=== PATIENT | female | born 1975 | race Caucasian/White ===

== ENCOUNTER 2020-02-26 19:54 | Emergency (ER) | payer OTHER ==
[~2020-02-26] VITALS: Ht 167.6 cm; Wt 108.9 kg
[2020-02-26 23:50] LABS: Source, Urine Clean Catch
[2020-02-26 23:57] LABS: Bilirubin, Urine Neg (Neg); Blood, Urine 5+ (Neg); Glucose Qualitative, Urine Neg (Neg); Ketones, Urine 3+ (Neg); Leukocyte Esterase, Urine 3+ (Neg); Nitrite, Urine Pos (Neg); Protein, Urine 2+ (Neg); Specific Gravity, Urine 1.025 (1.003-1.022); Urobilinogen, Urine 1+ (Normal)
[2020-02-27 00:05] LABS: Appearance, Urine Cloudy (Clear); Color, Urine Yellow (P-Yellow)
[2020-02-27 00:06] LABS: Bacteria Many /hpf; Red Blood Cells, Urine 0-2 /hpf (0-2); Squamous Epithelial Cells Many /hpf (Few); White Blood Cells, Urine TNTC /hpf (0-5)
[2020-03-01] MEDS ORDERED: CEPH500 PO (09:34)
== END 2020-02-27 00:38 | disposition home or self-care (01) ==
LOC: ER 19:54
PROVIDERS: Physician Assistant
DX: N93.9 Abnormal uterine and vaginal bleeding, unspecified (principal); R82.71 Bacteriuria; Z88.5 Allergy status to narcotic agent
CPT/HCPCS: 81001; 81025; 87077; 87086; 87186; 99284

== ENCOUNTER 2020-04-21 19:50 | Emergency (ER) | payer OTHER ==
[~2020-04-21] VITALS: Ht 167.6 cm; Wt 108.9 kg
[~2020-04-21 19:50] MED LIST: CEPH500 PO
[2020-04-21] MEDS ORDERED: CYCL10 PO (22:31)
[2020-04-21] MEDS ORDERED: IBUP800 PO (22:31)
== END 2020-04-21 22:34 | disposition home or self-care (01) ==
LOC: ER 19:50
DX: M54.41 Lumbago with sciatica, right side (principal); F17.210 Nicotine dependence, cigarettes, uncomplicated; Z88.5 Allergy status to narcotic agent
CPT/HCPCS: 72100; 72170; J1885

== ENCOUNTER 2021-07-07 14:07 | Emergency (ER) | payer OTHER ==
[~2021-07-07] VITALS: Ht 167.6 cm; Wt 102.1 kg
[~2021-07-07 14:07] MED LIST changes: +CYCL10 PO; +IBUP800 PO
[2021-07-07 14:55] LABS: BASOPHILS ABSOLUTE AUTO 0.02 K/mm3 (0.00-0.23); BASOPHILS PERCENT AUTO 0 % (0-2); EOSINOPHILS ABSOLUTE AUTO 0.11 K/mm3 (0.00-0.68); EOSINOPHILS PERCENT AUTO 1 % (0-6); Hematocrit 47.7 % (33.0-51.0); Hemoglobin 15.7 g/dL (11.5-16.0); IMMATURE GRAN ABSOLUTE AUTO 0.03 K/mm3 (0.00-0.10); IMMATURE GRAN PERCENT AUTO 0 % (0-1); LYMPHOCYTES ABSOLUTE AUTO 1.58 K/mm3 (0.84-5.20); LYMPHOCYTES PERCENT AUTO 14 % (21-46); MONOCYTES ABSOLUTE AUTO 0.43 K/mm3 (0.16-1.47); MONOCYTES PERCENT AUTO 4 % (4-13); Mean Corpuscular HGB 30.7 pg (26.0-34.0); Mean Corpuscular HGB Conc 32.9 g/dL (31.5-36.5); Mean Corpuscular Volume 93 fL (80-100); Mean Platelet Volume 10.6 fL (9.1-12.4); NEUTROPHILS ABSOLUTE AUTO 9.16 K/mm3 (1.96-9.15); NEUTROPHILS PERCENT AUTO 81 % (41-73); Platelet Count 252 K/mm3 (150-400); RDW Coefficient Variation 12.2 % (11.7-14.2); RDW Standard Deviation 42.5 fL (35.1-46.3); Red Blood Cell Count 5.12 M/mm3 (3.80-5.20); White Blood Cell Count 11.33 K/mm3 (4.00-11.30)
[2021-07-07 15:11] LABS: Alanine Aminotransfer (ALT/SGP 19 U/L (12-78); Albumin, Blood 3.8 g/dL (3.4-5.0); Alk Phos 71 U/L (50-136); Anion Gap 3 mmol/L (6-16); Aspartate Aminotrans (AST/SGOT 12 U/L (12-37); Bilirubin, Total 0.4 mg/dL (0.1-1.0); Blood Urea Nitrogen 15 mg/dL (8-24); Bun/Creatinine Ratio 17.7 (12.0-20.0); CO2, Blood 27 mmol/L (21-32); Chloride, Blood 111 mmol/L (98-108); Creatinine, Blood 0.85 mg/dL (0.40-1.00); Globulin, Blood 3.7 g/dL (2.2-4.0); Glomerular Filtration Rate >60 (60-); Glucose, Blood 106 mg/dL (70-99); Potassium, Blood 4.1 mmol/L (3.5-5.5); Sodium, Blood 141 mmol/L (136-145); Total Protein, Blood 7.5 g/dL (6.4-8.2)
[2021-07-07] MEDS ORDERED: SULTRIDS PO (17:33)
[2021-07-07] MEDS ORDERED: CEPH500 PO (17:33)
[2021-07-07] MEDS ORDERED: BANOPHEN25 MG PO (17:33)
[2021-07-07] MEDS ORDERED: Norco 5-325 Ta1 EACH PO (17:33)
== END 2021-07-07 17:43 | disposition home or self-care (01) ==
LOC: ER 14:07
PROVIDERS: Physician Assistant
DX: L03.116 Cellulitis of left lower limb (principal)
CPT/HCPCS: 36415; 73630; 80053; 83605; 85025; 86141; 93005; 93010; 96374; 96375; 99284-25; A9270; J0690; J1885; J2060; J2405; J3010; J7030

== ENCOUNTER 2022-07-26 12:58 | Emergency (ER) | payer OTHER ==
[~2022-07-26] VITALS: Ht 167.6 cm; Wt 104.3 kg
[~2022-07-26 12:58] MED LIST changes: +BANOPHEN25 MG PO; +CALAMINE LOTIO177 ML TOP; +HYDR1TAB94 PO; +Norco 5-325 Ta1 EACH PO; +SULTRIDS PO
== END 2022-07-26 15:42 | disposition home or self-care (01) ==
LOC: ER 12:58
DX: S50.11XA Contusion of right forearm, initial encounter (principal); S60.021A Contusion of right index finger without damage to nail, initial encounter; M79.7 Fibromyalgia; F17.210 Nicotine dependence, cigarettes, uncomplicated; Z88.5 Allergy status to narcotic agent; Z79.899 Other long term (current) drug therapy; W55.12XA Struck by horse, initial encounter
CPT/HCPCS: 73090; 73130; 96372; 99283-25; A9270; J1885

== ENCOUNTER 2023-03-22 12:35 | Emergency (ER) | payer OTHER ==
[~2023-03-22] VITALS: Ht 167.6 cm; Wt 102.1 kg
[~2023-03-22 12:35] MED LIST changes: +GABA300 PO; +LITH300C PO; +TRAZ50
[2023-03-22 15:44] LABS: BASOPHILS ABSOLUTE AUTO 0.03 K/mm3 (0.00-0.23); BASOPHILS PERCENT AUTO 0 % (0-2); EOSINOPHILS PERCENT AUTO 0 % (0-6); Hematocrit 42.9 % (33.0-51.0); Hemoglobin 14.4 g/dL (11.5-16.0); IMMATURE GRAN ABSOLUTE AUTO 0.02 K/mm3 (0.00-0.10); IMMATURE GRAN PERCENT AUTO 0 % (0-1); LYMPHOCYTES ABSOLUTE AUTO 2.07 K/mm3 (0.84-5.20); LYMPHOCYTES PERCENT AUTO 21 % (21-46); MONOCYTES ABSOLUTE AUTO 0.35 K/mm3 (0.16-1.47); MONOCYTES PERCENT AUTO 4 % (4-13); Mean Corpuscular HGB 30.6 pg (26.0-34.0); Mean Corpuscular HGB Conc 33.6 g/dL (31.5-36.5); Mean Corpuscular Volume 91 fL (80-100); Mean Platelet Volume 10.5 fL (9.1-12.4); NEUTROPHILS ABSOLUTE AUTO 7.35 K/mm3 (1.96-9.15); NEUTROPHILS PERCENT AUTO 75 % (41-73); Platelet Count 237 K/mm3 (150-400); RDW Coefficient Variation 11.9 % (11.7-14.2); RDW Standard Deviation 40.4 fL (35.1-46.3); White Blood Cell Count 9.82 K/mm3 (4.00-11.30)
[2023-03-22 16:12] LABS: Ethanol (Alcohol), Blood, Med <3 mg/dL
[2023-03-22 16:13] LABS: Alanine Aminotransfer (ALT/SGP 23 U/L (12-78); Albumin, Blood 3.3 g/dL (3.4-5.0); Alk Phos 58 U/L (50-136); Anion Gap 4 mmol/L (6-16); Aspartate Aminotrans (AST/SGOT 16 U/L (12-37); Bilirubin, Total 0.4 mg/dL (0.1-1.0); Blood Urea Nitrogen 7 mg/dL (8-24); Bun/Creatinine Ratio 9.1 (12.0-20.0); CO2, Blood 24 mmol/L (21-32); Chloride, Blood 115 mmol/L (98-108); Creatinine, Blood 0.77 mg/dL (0.40-1.00); Globulin, Blood 3.3 g/dL (2.2-4.0); Glomerular Filtration Rate 96 (60-); Glucose, Blood 80 mg/dL (70-99); Potassium, Blood 3.4 mmol/L (3.5-5.5); Sodium, Blood 143 mmol/L (136-145); Total Protein, Blood 6.6 g/dL (6.4-8.2)
[2023-03-22 16:41] LABS: Lithium <0.20 mmol/L (0.60-1.20)
[2023-03-22 16:42] VITALS: BP 133/84
[2023-03-22] MEDS ORDERED: LITH300C PO (17:08)
[2023-03-23] MEDS ORDERED: MELATONIN5 M1 PO (18:42)
[2023-03-23] MEDS ORDERED: LITH300C PO (18:42)
[2023-03-23] MEDS ORDERED: TRAZ100 PO (18:43)
== END 2023-03-22 17:17 | disposition home or self-care (01) ==
LOC: ER 12:35
PROVIDERS: Emergency Medicine
DX: F31.9 Bipolar disorder, unspecified (principal); Z91.148 Patient's other noncompliance with medication regimen for other reason; F41.9 Anxiety disorder, unspecified; M79.7 Fibromyalgia; F17.210 Nicotine dependence, cigarettes, uncomplicated; Z79.899 Other long term (current) drug therapy; Z88.5 Allergy status to narcotic agent
CPT/HCPCS: 80053; 80178; 85025; 99283; A9270

== ENCOUNTER 2023-03-23 18:09 | Observation (INO) | payer OTHER ==
[~2023-03-23] VITALS: Ht 167.6 cm; Wt 102.1 kg
[2023-03-23] MEDS ORDERED: MELATONIN5 M1 PO (18:42)
[2023-03-23] MEDS ORDERED: LITH300C PO (18:42)
[2023-03-23] MEDS ORDERED: TRAZ100 PO (18:43)
[2023-03-25 08:35] VITALS: BP 106/76
[2023-03-25 10:29] LABS: Lithium 0.79 mmol/L (0.60-1.20)
== END 2023-03-25 14:32 ==
LOC: ER 18:09 → EOR 18:10
PROVIDERS: Psychiatry & Neurology Psychiatry; ADMIT Emergency Medicine
DX: F31.81 Bipolar II disorder (principal); F17.210 Nicotine dependence, cigarettes, uncomplicated; F43.12 Post-traumatic stress disorder, chronic; F12.129 Cannabis abuse with intoxication, unspecified; R45.851 Suicidal ideations; G89.29 Other chronic pain; M54.9 Dorsalgia, unspecified; Z88.8 Allergy status to other drugs, medicaments and biological substances; Z88.5 Allergy status to narcotic agent
CPT/HCPCS: 80178; 99285; A9270; G0378

== ENCOUNTER 2023-08-30 12:12 | Emergency (ER) | payer OTHER ==
[~2023-08-30] VITALS: Ht 167.6 cm; Wt 104.3 kg
[~2023-08-30 12:12] MED LIST changes: +MELATONIN5 M1 PO; +TRAZ100 PO
[2023-08-30 12:33] VITALS: BP 162/94
[2023-08-30] MEDS ORDERED: Ketorolac Tromethamine 30mg Vial IM ONE (14:25)
[2023-08-30] MEDS ORDERED: Acetaminophen 500 MG Tab PO ONE (14:25)
[2023-08-30] MEDS ORDERED: CRUTCH2 XX (15:54)
== END 2023-08-30 16:22 | disposition home or self-care (01) ==
LOC: ER 12:12
DX: S82.64XA Nondisplaced fracture of lateral malleolus of right fibula, initial encounter for closed fracture (principal); F17.210 Nicotine dependence, cigarettes, uncomplicated; X50.1XXA Overexertion from prolonged static or awkward postures, initial encounter; Z79.899 Other long term (current) drug therapy; Z88.5 Allergy status to narcotic agent; Z88.8 Allergy status to other drugs, medicaments and biological substances
CPT/HCPCS: 73610; 73620; A9270; J1885

== ENCOUNTER 2024-02-19 20:29 | Emergency (ER) | payer OTHER ==
[~2024-02-19] VITALS: Ht 167.6 cm; Wt 108.9 kg
[~2024-02-19 20:29] MED LIST changes: +CRUTCH2 XX
[2024-02-19 21:28] VITALS: BP 163/112
== END 2024-02-20 01:15 | disposition home or self-care (01) ==
LOC: ER 20:29
DX: M79.662 Pain in left lower leg (principal); Z88.8 Allergy status to other drugs, medicaments and biological substances; Z88.5 Allergy status to narcotic agent; Z79.899 Other long term (current) drug therapy; F17.200 Nicotine dependence, unspecified, uncomplicated
CPT/HCPCS: 93971; 99284-25